=== PATIENT | male | born 1985 | race Caucasian/White ===

== ENCOUNTER 2021-10-28 23:15 | Emergency (ER) | payer SELFPAY ==
[~2021-10-28] VITALS: Ht 188 cm; Wt 84.0 kg
[2021-10-28 23:22] VITALS: BP 147/68
[2021-10-28] MEDS ORDERED: AMOX500T PO (23:36)
[2021-10-28] MEDS ORDERED: NAPR-514 PO (23:36)
--- NOTE | 2021-10-28 23:36 | PHYS DOC ---
Past Medical History Past Medical History: No Pertinent History, Anxiety, Other Additional Past Medical Histor: ptsd Past Surgical History: No Surgical History Smoking Status: Never Smoker Alcohol Use: None Drug Use: Marijuana General Adult EDM: Chief Complaint: DENTAL PROBLEM HPI: HPI: Patient is a 36 year old male with history of anxiety presenting to the ED today complaining of 7 out of 10 bilateral lower gum dental pain, symptoms of been going on for months but got worse tonight. Patient denies any fever or trismus. Denies anything specifically relieving the pain but states cold items exacerbate the pain. He states he is not able to see a dentist because he cannot afford extractions. Patient states he is currently at [facility] and is not allowed to have any narcotics Review of Systems: Review of Systems: Constitutional: Denies fever or chills. [] HENT: Reports dental pain. Denies nasal congestion or sore throat. [] Musculoskeletal: Denies back pain or joint pain. [] Integument: Denies rash. [] Neurologic: Denies headache, focal weakness or sensory changes. Psychiatric: Denies depression or anxiety. [] Heart Score: C/O Chest Pain: N/A Risk Factors: Risk Factors: DM, Current or recent (<one month) smoker, HTN, HLP, family history of CAD, obesity. Risk Scores: Score 0 - 3: 2.5% MACE over next 6 weeks - Discharge Home Score 4 - 6: 20.3% MACE over next 6 weeks - Admit for Clinical Observation Score 7 - 10: 72.7% MACE over next 6 weeks - Early Invasive Strategies Allergies: Allergies: Allergies Coded Allergies Type Severity Reaction Last Updated Verified sulfamethoxazole Allergy Mild Nausea 10/28/21 Yes trimethoprim Allergy Mild Nausea 10/28/21 Yes Physical Exam: PE: Constitutional: Well developed, well nourished, no acute distress, non-toxic appearance. [] HENT: Normocephalic, atraumatic, bilateral external ears normal, oropharynx moist, no oral exudates, nose normal. [] Missing wisdom teeth, approximately tooth #34 is broken and decayed, second molar on the left lower gum is also broken and decayed, no gum erythema, no abscess Skin: Warm, dry, no erythema, no rash. [] Back: No tenderness, no CVA tenderness. [] Extremities: No tenderness, no cyanosis, no clubbing, ROM intact, no edema. [] Neurologic: Alert and oriented X 3, normal motor function, normal sensory function, no focal deficits noted. [] Psychologic: Affect normal, judgement normal, mood normal. [] Current Patient Data: Vital Signs: Vital Signs Date Time Temp Pulse Resp B/P (MAP) Pulse Ox O2 Delivery O2 Flow Rate FiO2 10/28/21 23:22 98.0 66 18 147/68 (94) 96 Room Air 98.0 EKG: EKG: [] Radiology/Procedures: Radiology/Procedures: [] Course & Med Decision Making: Course & Med Decision Making Pertinent Labs and Imaging studies reviewed. (See chart for details) Patient is 36-year-old male presenting today with dental pain, discharged on amoxicillin. Follow-up with a dentist. Tylenol/Motrin for pain Dragon Disclaimer: Dragon Disclaimer: This electronic medical record was generated, in whole or in part, using a voice recognition dictation system. Departure Departure Impression: Primary Impression: Pain, dental Additional Impression: Infected dental caries Disposition: HOME / SELF CARE / HOMELESS Condition: STABLE Referrals: NO PCP (PCP) follow up in one week with a dentist of your choice Patient Instructions: Dental Caries Additional Instructions: You were seen for dental pain. Take the prescribed antibiotics until completed. You can take Tylenol or Motrin for pain, follow-up with the dentist as soon as you can Scripts Naproxen (NAPROXEN) 500 Mg Tablet 1 TAB PO BID for pain, #14 TAB 0 Refills Prov: MELISA SANTIAGO APRN 10/28/21 Amoxicillin (AMOXICILLIN) 500 Mg Tablet 1 TAB PO BID, #20 TAB Prov: MELIAS SANTIAGO CATALOGUE LIBRARIAN 10/28/21 MELISA SANTIAGO APRN October 28, 2021 23:36
[2021-10-29] MEDS ORDERED: NAPROXEN 500 MG TABLET PO ONE
[2021-10-29] MEDS ORDERED: AMOXICILLIN 250 MG CAPSULE. PO ONE
== END 2021-10-28 23:54 | disposition home or self-care (01) ==
LOC: ER 23:15
DX: K02.9 Dental caries, unspecified (principal); F41.9 Anxiety disorder, unspecified; F43.10 Post-traumatic stress disorder, unspecified; Z88.2 Allergy status to sulfonamides; Z88.1 Allergy status to other antibiotic agents
CPT/HCPCS: 99283